=== PATIENT | female | born 1965 | race Caucasian/White ===

== ENCOUNTER → 2016-03-22 | Outpatient (CLI) | payer BC ==
--- NOTE | 2016-03-23 08:14 | MM ---
Reason for exam: screening (asymptomatic). Baseline mammogram. History: Patient is postmenopausal and is nulliparous. Family history of breast cancer in grandmother. Physical Findings: Nurse did not find any significant physical abnormalities on exam. MG Screening Mammo w CAD Bilateral CC and MLO view(s) were taken. The breast tissue is almost entirely fat. There is no discrete abnormality. Benign bilateral axillary lymph nodes. ASSESSMENT: Negative, BI-RAD 1 RECOMMENDATION: Routine screening mammogram of both breasts in 1 year.
== END | disposition home or self-care (01) ==
LOC: RADMAMWWP 08:09
PROVIDERS: ATTEND Family Medicine
DX: Z12.31 Encounter for screening mammogram for malignant neoplasm of breast (principal)

== ENCOUNTER → 2016-04-28 | Outpatient (CLI) | payer BC ==
[2016-04-28 11:49] LABS: Aty Lym Flag Slight; CH 30.3; CHCM 33.7; HGB 12.2 gm/dL (11.4-16.0); MCH 29.9 pg (25.0-35.0); MCV 90.6 fL (80.0-100.0); RBC 4.08 m/uL (3.80-5.40); RDW 13.6 % (11.5-15.5); WBC 4.9 k/uL (3.8-10.6); WBC (Perox) 5.12
[2016-04-28 13:12] LABS: Add Differential Manual Differential
[2016-04-28 13:14] LABS: Manual Review Performed; Nucleated Red Blood Cells 0 /100 WBC (0-0); Total Cells Counted 100
[2016-04-30 07:10] LABS: Mycoplasma IgG Antibody (EIA) 1.57 INDEX (<=0.90); Mycoplasma IgM Antibody 0.13 INDEX (<=0.90)
== END | disposition home or self-care (01) ==
LOC: LABWHC1 10:35
PROVIDERS: ATTEND Family Medicine
DX: R53.83 Other fatigue (principal); R05 Cough; R09.89 Other specified symptoms and signs involving the circulatory and respiratory systems
CPT/HCPCS: 36415; 85025; 86738

== ENCOUNTER → 2017-01-25 | Outpatient (CLI) | payer BC ==
[2017-01-25 16:07] LABS: ALT 35 U/L (9-52); AST 27 U/L (14-36); Alkaline Phosphatase 104 U/L (38-126); Anion Gap 13 mmol/L; Blood Urea Nitrogen 20 mg/dL (7-17); Calcium 9.8 mg/dL (8.4-10.2); Carbon Dioxide 31 mmol/L (22-30); Chloride 93 mmol/L (98-107); Cholesterol 217 mg/dL (<200); Glucose 107 mg/dL (74-99); HDL Cholesterol 39 mg/dL (40-60); Non-African American GFR(MDRD) 52 (>60 ml/min/1.73 sqM); Potassium 3.4 mmol/L (3.5-5.1); Sodium 137 mmol/L (137-145); Total Bilirubin 0.8 mg/dL (0.2-1.3); Total Protein 8.9 g/dL (6.3-8.2)
[2017-01-25 16:11] LABS: Basophils % (A) 1 %; CH 30.8; CHCM 34.8; Eosinophils # (A) 0.1 k/uL (0-0.7); Eosinophils % (A) 2 %; HCT 36.9 % (34.0-46.0); HGB 12.3 gm/dL (11.4-16.0); Luc % (Auto) 2; Lymphocytes # (A) 1.1 k/uL (1.0-4.8); Lymphocytes % (A) 21 %; MCH 29.7 pg (25.0-35.0); MCHC 33.3 g/dL (31.0-37.0); Mean Platelet Volume 7.4; Monocytes # (A) 0.3 k/uL (0-1.0); Monocytes % (A) 5 %; Neutrophils # (A) 3.6 k/uL (1.3-7.7); Neutrophils % (A) 69 %; RBC 4.15 m/uL (3.80-5.40); RDW 12.8 % (11.5-15.5); WBC 5.2 k/uL (3.8-10.6); WBC (Perox) 5.05
== END | disposition home or self-care (01) ==
LOC: LABWHC1 15:37
PROVIDERS: ATTEND Family Medicine
DX: E55.9 Vitamin D deficiency, unspecified (principal); E78.5 Hyperlipidemia, unspecified; E53.8 Deficiency of other specified B group vitamins; R53.81 Other malaise; Z13.220 Encounter for screening for lipoid disorders
CPT/HCPCS: 36415; 80053; 80061; 82306; 82607; 84439; 84443; 85025

== ENCOUNTER → 2017-04-25 | Outpatient (CLI) | payer BC ==
--- NOTE | 2017-04-26 14:02 | MM ---
Reason for exam: screening (asymptomatic). Last mammogram was performed 1 year and 1 month ago. History: Patient is postmenopausal and is nulliparous. Family history of breast cancer in grandmother. Physical Findings: A clinical breast exam by your physician is recommended on an annual basis and results should be correlated with mammographic findings. MG Screening Mammo w CAD Bilateral CC and MLO view(s) were taken. Prior study comparison: March 22, 2016, bilateral MG screening mammo w CAD. Focal asymmetry 6mm posterior outer aspect in the right breast. This finding is changed when compared with previous exams. ASSESSMENT: Incomplete: need additional imaging evaluation, BI-RAD 0 RECOMMENDATION: Special view mammogram of the right breast. If lesion persists on supplemental views, image directed ultrasound is recommended. [facility] will attempt to contact patient to return for supplemental views and ultrasound if indicated.
== END | disposition home or self-care (01) ==
LOC: RADMAMWWP 08:09
PROVIDERS: ATTEND Family Medicine
DX: Z12.31 Encounter for screening mammogram for malignant neoplasm of breast (principal)
CPT/HCPCS: 77067

== ENCOUNTER → 2017-05-02 | Outpatient (CLI) | payer BC ==
--- NOTE | 2017-05-02 10:55 | MM ---
Reason for exam: additional evaluation requested from abnormal screening. Last mammogram was performed less than 1 month ago. History: Patient is postmenopausal, has history of other cancer at age 49, and is nulliparous. Family history of breast cancer in paternal grandmother. Physical Findings: Nurse did not find any significant physical abnormalities on exam. MG Work Up Mamm w CAD RT Spot compression CC and ML view(s) were taken of the right breast. Prior study comparison: April 25, 2017, bilateral MG screening mammo w CAD. March 22, 2016, bilateral MG screening mammo w CAD. Finding: There is a 6 mm oval mass in the posterior position of the right breast. Does not completely go away. These results were verbally communicated with the patient and result sheet given to the patient on 05/02/17. ASSESSMENT: Incomplete: need additional imaging evaluation, BI-RAD 0 RECOMMENDATION: Ultrasound of the right breast. (8-11 o'clock posterior depth)
--- NOTE | 2017-05-02 10:58 | USB ---
Reason for exam: additional evaluation requested from abnormal screening. History: Patient is postmenopausal, has history of other cancer at age 49, and is nulliparous. Family history of breast cancer in paternal grandmother. US Breast Limited RT Right breast ultrasound demonstrates benign lymph nodes identified correlate with mammogram. These results were verbally communicated with the patient and result sheet given to the patient on 05/02/17. ASSESSMENT: Benign, BI-RAD 2 RECOMMENDATION: Return to routine screening mammogram schedule for both breasts.
== END | disposition home or self-care (01) ==
LOC: RADMAMWWP 08:19
PROVIDERS: ATTEND Family Medicine
DX: R92.8 Other abnormal and inconclusive findings on diagnostic imaging of breast (principal)
CPT/HCPCS: 77065

== ENCOUNTER → 2018-02-02 | Outpatient (CLI) | payer BC ==
[2018-02-02 11:28] LABS: Basophils % (A) 1 %; Eosinophils # (A) 0.2 k/uL (0-0.7); Eosinophils % (A) 4 %; HCT 37.6 % (34.0-46.0); HGB 12.1 gm/dL (11.4-16.0); Lymphocytes # (A) 0.8 k/uL (1.0-4.8); Lymphocytes % (A) 16 %; MCH 28.7 pg (25.0-35.0); MCHC 32.2 g/dL (31.0-37.0); MCV 89.3 fL (80.0-100.0); Mean Platelet Volume 6.8; Monocytes # (A) 0.3 k/uL (0-1.0); Monocytes % (A) 5 %; Neutrophils # (A) 3.6 k/uL (1.3-7.7); Neutrophils % (A) 71 %; Platelet Count 297 k/uL (150-450); RBC 4.22 m/uL (3.80-5.40); RDW 13.9 % (11.5-15.5); WBC 5.1 k/uL (3.8-10.6)
[2018-02-02 15:51] LABS: Albumin 4.5 g/dL (3.80-4.90); Albumin/Globulin Ratio 1.29 (1.20-2.10); Anion Gap 11.4 mmol/L (4.00-12.00); Calcium 9.4 mg/dL (8.7-10.3); Carbon Dioxide 27.6 mmol/L (21.6-31.8); Globulin 3.5 g/dL (1.6-3.3); LDL Cholesterol,Calculated 134.4 mg/dL (0.0-131.0); Potassium 3.8 mmol/L (3.5-5.5); Total Bilirubin 0.6 mg/dL (0.2-1.2); VLDL Calculation 19.6 mg/dL (5.00-40.00)
[2018-02-02 15:59] LABS: T4, Free (Free Thyroxine) 1.3 ng/dL (0.80-1.80)
== END | disposition home or self-care (01) ==
LOC: LABWHC1 10:27
PROVIDERS: ATTEND Family Medicine
DX: E55.9 Vitamin D deficiency, unspecified (principal); E78.5 Hyperlipidemia, unspecified; R53.83 Other fatigue; Z13.220 Encounter for screening for lipoid disorders
CPT/HCPCS: 36415; 80053; 80061; 82306; 84439; 84443; 85025

== ENCOUNTER → 2018-07-06 | Outpatient (CLI) | payer BC ==
[2018-07-06 23:19] LABS: Rheumatoid Factor 18 IU/mL (0-15)
[2018-07-06 23:39] LABS: Protein, Total 8.2 g/dL (6.2-8.2)
[2018-07-07 11:17] LABS: ANA Pattern Speckled
[2018-07-08 14:42] LABS: Albumin 4.12 g/dL (3.80-4.90); Gamma Globulin 1.91 g/dL (0.70-1.50)
== END | disposition home or self-care (01) ==
LOC: LABWHC1 15:00
PROVIDERS: ATTEND Internal Medicine Hematology & Oncology
DX: R59.1 Generalized enlarged lymph nodes (principal)
CPT/HCPCS: 36415; 82164; 83615; 83883; 84165; 85652; 86038; 86039; 86334; 86431

== ENCOUNTER → 2018-07-20 | Outpatient (CLI) | payer BC ==
[2018-07-20 11:38] LABS: Basophils % (A) 1 %; Eosinophils # (A) 0.2 k/uL (0-0.7); Eosinophils % (A) 2 %; HCT 37.5 % (34.0-46.0); HGB 12.3 gm/dL (11.4-16.0); Lymphocytes % (A) 16 %; MCH 28.6 pg (25.0-35.0); MCHC 32.8 g/dL (31.0-37.0); MCV 87.2 fL (80.0-100.0); Mean Platelet Volume 7.1; Monocytes # (A) 0.3 k/uL (0-1.0); Monocytes % (A) 5 %; Neutrophils # (A) 4.8 k/uL (1.3-7.7); Neutrophils % (A) 74 %; Platelet Count 318 k/uL (150-450); RDW 14.6 % (11.5-15.5); WBC 6.5 k/uL (3.8-10.6)
[2018-07-20 12:50] LABS: Appearance,Urine Clear (Clear); Bilirubin,Urine Negative (Negative); Blood,Urine Negative (Negative); Color,Urine Light Yellow; Glucose,Urine (UA) Negative (Negative); Ketones,Urine Negative (Negative); Leukocyte Esterase,Urine Negative (Negative); Nitrite,Urine Negative (Negative); Protein,Urine Negative (Negative); Urobilinogen,Urine <2.0 mg/dL (<2.0)
[2018-07-20 13:16] LABS: Erythrocyte Sedimentation Rate 90 mm/hr (0-20)
[2018-07-20 16:45] LABS: Cyclic Citrull Pep IgG Unit 0.8 U/mL; Cyclic Citrullinated Pep IgG NEGATIVE (NEGATIVE); DNA Double-Stranded NEGATIVE (NEGATIVE); Scleroderma SC-70 Ab 3.9 AI
[2018-07-20 16:46] LABS: Cardiolipin Ab IgA Interp NEGATIVE (NEGATIVE); Cardiolipin Ab IgG Interp NEGATIVE (NEGATIVE); Cardiolipin Ab IgM Interp NEGATIVE (NEGATIVE); Cardiolipin IgA Antibody 0.5 U/mL; Cardiolipin IgM Antibody 0.6 U/mL
[2018-07-20 16:53] LABS: Rheumatoid Factor 18 IU/mL (0-15)
[2018-07-20 17:02] LABS: Vitamin D 25 Hydroxy 21.6 ng/mL (30.0-100.0)
[2018-07-20 18:22] LABS: Hepatitis C IgG Antibody Non-Reactive (Non-Reactive)
[2018-07-21 00:20] LABS: T4, Free (Free Thyroxine) 1.1 ng/dL (0.80-1.80)
[2018-07-21 00:22] LABS: African American GFR (CKD) 60.2 (60.0-200.0); Albumin 4.6 g/dL (3.80-4.90); Albumin/Globulin Ratio 1.12 (1.60-3.17); Anion Gap 10.7 mmol/L (4.00-12.00); BUN/Creat Ratio 19.17 Ratio (12.00-20.00); C Reactive Protein 0.4 mg/dL (0.0-0.8); Carbon Dioxide 28.3 mmol/L (21.6-31.8); Globulin 4.1 g/dL (1.6-3.3); Potassium 3.3 mmol/L (3.5-5.5); Total Bilirubin 0.4 mg/dL (0.3-1.2); Total Protein 8.7 g/dL (6.2-8.2); Uric Acid 7.4 mg/dL (2.9-7.7)
[2018-07-21 09:22] LABS: HLA B27 NEGATIVE
[2018-07-21 11:06] LABS: ANA Pattern Speckled; ANA Pattern 2 Nucleolar
[2018-07-21 12:27] LABS: Angiotensin-1 Converting Enz. 64 U/L (8-52)
[2018-07-21 13:33] LABS: Histone Antibody 0.5 UNITS (<1.0)
[2018-07-21 14:19] LABS: APTT 29 Sec(s) (<43); DRVVT 1:1 Mix 40 Sec(s) (<44); Dilute Russell Viper Venom 46 Sec(s) (<44)
[2018-07-21 14:54] LABS: C-ANCA <1:20 Titer (<1:20); P-ANCA <1:20 Titer (<1:20)
[2018-07-22 08:19] LABS: Aldolase 4.1 U/L (1.2-7.6)
== END ==
LOC: LABWHC1 10:38
PROVIDERS: ATTEND Internal Medicine Rheumatology
DX: R76.8 Other specified abnormal immunological findings in serum (principal)
CPT/HCPCS: 36415; 80053; 81003; 82085; 82164; 82306; 82550; 83516; 84439; 84443; 84550; 85025; 85613; 85652; 85730; 86038; 86039; 86140; 86147; 86160; 86200; 86225; 86235; 86255; 86334; 86431; 86803; 86812; 87340

== ENCOUNTER → 2018-08-28 | Outpatient (CLI) | payer BC ==
--- NOTE | 2018-08-29 13:38 | MM ---
Reason for exam: screening (asymptomatic). Last mammogram was performed 1 year and 4 months ago. History: Patient is postmenopausal, has history of endometrial cancer at age 49, and is nulliparous. Family history of breast cancer in paternal grandmother at age 72. Physical Findings: A clinical breast exam by your physician is recommended on an annual basis and results should be correlated with mammographic findings. MG Screening Mammo w CAD Bilateral CC and MLO view(s) were taken. Prior study comparison: May 02, 2017, right breast MG work up mamm w CAD RT. April 25, 2017, bilateral MG screening mammo w CAD. There are scattered fibroglandular densities. No suspicious abnormality. No significant changes when compared with prior studies. ASSESSMENT: Negative, BI-RAD 1 RECOMMENDATION: Routine screening mammogram of both breasts in 1 year.
== END | disposition home or self-care (01) ==
LOC: RADMAMWWP 07:49
PROVIDERS: ATTEND Obstetrics & Gynecology
DX: Z12.31 Encounter for screening mammogram for malignant neoplasm of breast (principal)
CPT/HCPCS: 77067

== ENCOUNTER → 2018-12-15 | Outpatient (CLI) | payer BC ==
--- NOTE | 2018-12-15 10:27 | MR ---
EXAMINATION TYPE: MR brain wo/w con DATE OF EXAM: 12/15/2018 COMPARISON: None HISTORY: Balance disorder TECHNIQUE: Multiplanar, multisequence images of the brain and brainstem is performed without and with IV contras t, utilizing 11.5 mL intravenous Gadavist . FINDINGS: Diffusion weighted images demonstrate no evidence of a recent infarct or other diffusion ab normality. The ventricular system and cisternal spaces are normal in size and appearance. The brain volume is age appropriate. Midline structures demonstrate normal morphology. Cerebellar tonsils are low-lying in position measur ing 2 mm below the level of foramen magnum. No tonsillar beaking. Post contrast images demonstrate n o abnormal enhancement. The dural venous sinuses appear patent. Changes of chronic sinusitis and righ t-sided mastoiditis. There are approximately 5 focal areas of abnormal signal the white matter all measuring less than 5 m m. IMPRESSION: 1. Low-lying cerebellar tonsils measuring approximately 2 mm below the foramen magnum. No tonsillar b eaking. 2. Changes of chronic sinusitis and right mastoiditis. 3. There are a few scattered less than 5 mm focal areas of abnormal signal the white matter which are nonspecific could be related to hypertension, migraine headaches. Remote microvascular ischemia or d emyelinating process not entirely excluded.
== END | disposition home or self-care (01) ==
LOC: RADMRIMAIN 09:05
PROVIDERS: ATTEND Psychiatry & Neurology Neurology
DX: J32.9 Chronic sinusitis, unspecified (principal); R26.89 Other abnormalities of gait and mobility; R90.82 White matter disease, unspecified
CPT/HCPCS: 70553; A9585

== ENCOUNTER → 2018-12-28 | Outpatient (CLI) | payer BC ==
--- NOTE | 2018-12-28 11:47 | ECHOF ---
Referral Reason:R05 cough MEASUREMENTS -------- HEIGHT: 165.1 cm WEIGHT: 113.4 kg BP: RVIDd: 3.1 cm (< 3.3) IVSd: 1.0 cm (0.6 - 1.1) LVIDd: 4.9 cm (3.9 - 5.3) LVPWd: 1.1 cm (0.6 - 1.1) IVSs: 1.2 cm LVIDs: 3.9 cm LVPWs: 1.4 cm LA Diam: 3.1 cm (2.7 - 3.8) LAESV Index (A-L): 18.05 ml/m Ao Diam: 2.7 cm (2.0 - 3.7) AV Cusp: 1.7 cm (1.5 - 2.6) LA Diam: 3.9 cm (2.7 - 3.8) MV EXCURSION: 19.783 mm (> 18.000) MV EF SLOPE: 102 mm/s (70 - 150) EPSS: 0.4 cm MV E Juan Jose: 0.73 m/s MV DecT: 193 ms MV A Juan Jose: 1.12 m/s MV E/A Ratio: 0.65 RAP: 5.00 mmHg RVSP: 15.61 mmHg FINDINGS -------- Sinus rhythm. This was a technically good study. LV size, wall thickness and systolic function are normal, with an EF greater than 55%. The left christine tricular size is normal. The diastolic filling pattern is normal for the age of the patient 6.25. The right ventricle is normal in size. The left atrial size is normal. Normal LA size by volume 22+/-6 ml/m2. The right atrial size is normal. There is mild aortic valve sclerosis. There is no evidence of aortic regurgitation. Mild mitral regurgitation is present. Mild tricuspid regurgitation present. Right ventricular systolic pressure is normal at < 35 mmHg. There is no evidence of pulmonary hypertension. There is no pulmonic regurgitation present. The aortic root size is normal. There is no pericardial effusion. CONCLUSIONS -------- 1. Sinus rhythm. 2. This was a technically good study. 3. LV size, wall thickness and systolic function are normal, with an EF greater than 55%. 4. The left ventricular size is normal. 5. The diastolic filling pattern is normal for the age of the patient 6.25 6. The right ventricle is normal in size. 7. The left atrial size is normal. 8. Normal LA size by volume 22+/-6 ml/m2. 9. The right atrial size is normal. 10. There is mild aortic valve sclerosis. 11. Mild mitral regurgitation is present. 12. Mild tricuspid regurgitation present. 13. Right ventricular systolic pressure is normal at < 35 mmHg. 14. There is no evidence of pulmonary hypertension. 15. There is no pulmonic regurgitation present. 16. The aortic root size is normal. 17. There is no pericardial effusion. DOCK [employer]PERATIONS SUPERVISOR: Sandy Olivo RDCS
== END | disposition home or self-care (01) ==
LOC: CPPFTMAIN 09:30
PROVIDERS: ATTEND Internal Medicine Critical Care Medicine
DX: I08.1 Rheumatic disorders of both mitral and tricuspid valves (principal); J44.9 Chronic obstructive pulmonary disease, unspecified
CPT/HCPCS: 93306; 94060; 94726; 94729

== ENCOUNTER → 2019-01-11 | Outpatient (CLI) | payer BC ==
--- NOTE | 2019-01-11 14:55 | US ---
EXAMINATION TYPE: US carotid duplex BILAT DATE OF EXAM: 01/11/2019 COMPARISON: NONE CLINICAL HISTORY: R26.89 BALANCE DISORDER. Patient states having brain lesions. HTN- controlled with meds. EXAM MEASUREMENTS: RIGHT: Peak Systolic Velocity (PSV) cm/sec ----- Right CCA: 90.8 ----- Right ICA: 76.5 ----- Right ECA: 143.1 ICA/CCA ratio: 0.8 RIGHT: End Diastole cm/sec ----- Right CCA: 29.2 ----- Right ICA: 23.7 ----- Right ECA: 23.6 LEFT: Peak Systolic Velocity (PSV) cm/sec ----- Left CCA: 90.1 ----- Left ICA: 78.8 ----- Left ECA: 67.1 ICA/CCA ratio: 0.9 LEFT: End Diastole cm/sec ----- Left CCA: 24.1 ----- Left ICA: 16.7 ----- Left ECA: 15.6 VERTEBRALS (direction of flow): Right Vertebral: Antegrade Left Vertebral: Antegrade Rhythm: Normal Elevated right ECA velocity right common carotid artery to internal carotid artery ratio is within no rmal limits. No significant stenosis. IMPRESSION: Mild degree of grayscale atheromatous plaquing with no sonographically evident hemodynam ically significant stenosis within either visualized carotid arterial system. Criteria for Assigning % of Stenosis / Diameter reduction (Estimation based on the indirect measurements of the internal carotid artery velocities (ICA PSV). 1. Normal (no stenosis)=ICA PSV < 125 cm/s: ratio < 2.0: ICA EDV<40 cm/s. 2. Less than 50% stenosis=ICA PSV < 125 cm/s: ratio < 2.0: ICA EDV<40 cm/s. 3. 50 to 69% stenosis=ICA PSV of 125 to 230 cm/s: ration 2.0 ? 4.0: ICA EDV 40-100 cm/s. 4. Greater than 70% stenosis to near occlusion= ICA PSV > 230 cm/s: ratio > 4.0: ICA EDV > 100 cm/s. 5. Near occlusion= ICA PSV velocities may be low or undetectable: variable ratio and ICA EDV. 6. Total occlusion=unable to detect flow.
== END | disposition home or self-care (01) ==
LOC: RADUSWWP 14:25
PROVIDERS: ATTEND Psychiatry & Neurology Neurology
DX: I65.23 Occlusion and stenosis of bilateral carotid arteries (principal); R26.89 Other abnormalities of gait and mobility
CPT/HCPCS: 93880

== ENCOUNTER → 2019-09-18 | Outpatient (CLI) | payer BC ==
--- NOTE | 2019-09-19 08:19 | CT ---
EXAMINATION TYPE: CT chest wo con DATE OF EXAM: 09/18/2019 COMPARISON: NONE at this institution. HISTORY: Chronic cough, newly diagnosed Sjogren's syndrome or disease per patient. CT DLP: 443.1 mGycm. Automated Exposure Control for Dose Reduction was Utilized. TECHNIQUE: CT scan of the thorax is performed without IV contrast. FINDINGS: LUNGS: There is 4 mm groundglass nodule right midlung anteriorly axial image 31. Mild linear scarring in both bases. No suspicious focal consolidation. No pleural effusion or pneumothorax seen bilateral ly. MEDIASTINUM: Lack of IV contrast is noted to limit evaluation for mediastinal and especially hilar ad enopathy. There are no definitive greater than 1 cm hilar or mediastinal lymph nodes. No cardiomega ly or pericardial effusion is seen. OTHER: Low dense 1.5 x 1.1 cm right adrenal nodule with Hounsfield units averaging -14 consistent wit h benign lipid rich adenoma. Moderate multilevel anterior and lateral spurring in the thoracic spine. IMPRESSION: No concerning greater than 4 mm pulmonary nodules or masses. No suspicious thoracic adeno kenney. No acute pulmonary process.
== END | disposition home or self-care (01) ==
LOC: RADCTMAIN 09:19
PROVIDERS: ATTEND Internal Medicine Critical Care Medicine
DX: R05 Cough (principal)
CPT/HCPCS: 71250

== ENCOUNTER 2020-05-17 10:46 | Emergency (ER) | payer BC ==
--- NOTE | 2020-05-17 11:23 | ED ---
General Adult HPI - General Chief complaint: Recheck/Abnormal Lab/Rx Stated complaint: BAM Time Seen by Provider: 05/17/20 11:00 Source: patient, RN notes reviewed, old records reviewed Mode of arrival: ambulatory Limitations: no limitations - History of Present Illness Initial comments: This is a 54-year-old female presents emergency department stating that at another facility she was tested positive for COVID yesterday. Patient states she continues to have diarrhea and nausea and a fever. Patient states she has a cough but she's not short of breath patient denies any difficulty breathing. Patient denies any chest pain or palpitations. Patient states she has lost her taste and smell per patient denies headache patient denies numbness weakness. Patient denies any back pain. Patient states she was sent in by primary medical care doctor to get monoclonal antibodies. - Related Data Allergies Allergy/AdvReac Type Severity Reaction Status Date / Time latex Allergy Rash/Hives Verified 05/17/20 10:54 Penicillins Allergy Rash/Hives Verified 05/17/20 10:54 Review of Systems ROS Statement: Those systems with pertinent positive or pertinent negative responses have been documented in the HPI. ROS Other: All systems not noted in ROS Statement are negative. Past Medical History Past Medical History: Cancer, Renal Disease Additional Past Medical History / Comment(s): sjorgens, susy malformation, endometrial cancer Past Surgical History: Adenoidectomy, Hysterectomy, Tonsillectomy Additional Past Surgical History / Comment(s): bladder surgery, sinus surgery Past Psychological History: No Psychological Hx Reported Smoking Status: Never smoker Past Alcohol Use History: None Reported Past Drug Use History: None Reported General Exam - General Exam Comments Initial Comments: GENERAL: Patient is well-developed and well-nourished. Patient is nontoxic and well- hydrated and is in mild distress. ENT: Neck is soft and supple. No significant lymphadenopathy is noted. Oropharynx is clear. Moist mucous membranes. Neck has full range of motion without eliciting any pain. EYES: The sclera were anicteric and conjunctiva were pink and moist. Extraocular movements were intact and pupils were equal round and reactive to light. Eyelids were unremarkable. PULMONARY: Unlabored respirations. Good breath sounds bilaterally. No audible rales rhonchi or wheezing was noted. CARDIOVASCULAR: There is a regular rate and rhythm without any murmurs gallops or rubs. l pulses are equal bilaterally ABDOMEN: Soft and nontender with normal bowel sounds. SKIN: Skin is clear with no lesions or rashes and otherwise unremarkable. NEUROLOGIC: Patient is alert and oriented x3. Cranial nerves II through XII are grossly intact. Motor and sensory are also intact. Normal speech, volume and content. Symmetrical smile. MUSCULOSKELETAL: Normal extremities with adequate strength and full range of motion. LYMPHATICS: No significant lymphadenopathy is noted PSYCHIATRIC: Normal psychiatric evaluation. Limitations: no limitations Course Vital Signs 05/17/20 10:50 Temperature 98.8 F Pulse Rate 81 Respiratory 18 Rate Blood Pressure 130/84 O2 Sat by Pulse 97 Oximetry Medical Decision Making - Medical Decision Making Patient has positive so patient will be getting monoclonal antibodies. - Lab Data Lab Results 05/17/20 Range/Units 11:09 Coronavirus (PCR) Detected A (Not Detectd) Disposition Clinical Impression: COVID-19 Disposition: HOME SELF-CARE Instructions (If sedation given, give patient instructions): Coronavirus Disease 2019 (COVID-19) Additional Instructions: Patient should return if there are any worsening or new symptoms and particularly if there is any shortness of breath. Is patient prescribed a controlled substance at d/c from ED?: No Referrals: Brice Regan MD [Primary Care Provider] - 1-2 days Time of Disposition: 12:10
[2020-05-17] MEDS: ONDANSETRON ODT 4 MG TAB PO STA (11:41)
[2020-05-17] MEDS: BAMLANIVIMAB (EUA) 700 MG, ETESEVIMAB (EUA) 1,400 MG in SODIUM CHLORIDE 0.9% 50 ML IVPB ONE (12:50)
[2020-05-17 14:39] VITALS: BP 134/86; PULSE 82; RESP 18; TEMP 99
== END 2020-05-17 14:39 | disposition home or self-care (01) ==
LOC: EC 10:46
DX: U07.1 COVID-19 (principal); Z88.0 Allergy status to penicillin
CPT/HCPCS: 87635; 96365; 99284

== ENCOUNTER → 2021-10-19 | Outpatient (CLI) | payer BC ==
--- NOTE | 2021-10-21 16:00 | MM ---
Reason for Exam: Screening (asymptomatic). Last mammogram was performed 3 year(s) and 2 month(s) ago. Patient History: Menarche at age 8. Patient has no children. Left ovary removed at age 49. Right ovary removed at age 49. Hysterectomy at age 49. Postmenopausal. Endometrial cancer, age 49. Paternal grandmother had breast cancer, age 72. Risk Values: Heidi 5 year model risk: 1.4%. NCI Lifetime model risk: 9.9%. Prior Study Comparison: 04/25/2017 Bilateral Screening Mammogram, [facility]. 05/02/2017 Right Diagnostic Mammogram, [facility]. 08/28/2018 Bilateral Screening Mammogram, [facility]. Tissue Density: The breast tissue is almost entirely fat. Findings: Analyzed By CAD. There is no suspicious group of microcalcifications or new suspicious mass in either breast. Overall Assessment: Negative, BI-RAD 1 Management: Screening Mammogram of both breasts in 1 year. A clinical breast exam by your physician is recommended on an annual basis and results should be correlated with mammographic findings. Electronically signed and approved by: Dayron Marroquin DO
== END | disposition home or self-care (01) ==
LOC: RADMAMWWP 07:34
PROVIDERS: ATTEND Family Medicine
DX: Z12.31 Encounter for screening mammogram for malignant neoplasm of breast (principal); Z78.0 Asymptomatic menopausal state; Z80.3 Family history of malignant neoplasm of breast
CPT/HCPCS: 77067

== ENCOUNTER → 2022-03-09 | Outpatient (CLI) | payer BC ==
--- NOTE | 2022-03-09 15:46 | P.SLEEP ---
History of Present Illness H&P Date: 03/09/22 This is a 56-year-old female patient was referred to me for a poor sleep quality, chronic fatigue and daytime tiredness and sleepiness. The patient feels that she has a sleeping disorder. 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 She works in the afternoon and she arrives home at around 2 AM. She is unable to fall asleep even if she is in bed and sometimes takes it up to 45 minutes to an hour to fall asleep. Currently, the patient is sleeping between 3 AM and 10 AM in the morning. She thinks that she is averaging around 6-7 hours of sleep. I was able to check her 50 bid which has recorded her number of hours of sleep and this ranges between 5-1/2 hours and 7 hours. Sometimes, she sees as little as 3 hours. The patient thinks that there is a problem with her sleep quality as the patient is waking up tired and fatigued and sleepy. Her sleep is very much fragmented and she has frequent nighttime urination and sometimes she is unable to generate and go back to sleep after waking up. She has a previous history of uterine cancer that was treated with radiation therapy and since then, she has had issues with her bladder, probably irritable bladder and the patient has constant urge to urinate. She gets up at least 6 times in the middle of the night. She has been also diagnosed having chronic stage III a kidney disease. Other comorbidities include chronic body aches and pains, Sjogren's disease and the patient is currently on Plaquenil and she has a typical sicca syndrome. She also has other comorbidities including hypertension, previous history of Park's palsy and Arnold-Chiari malformation. No history of any headaches. No 70 seizure activity. No substance abuse. No alcoholism. No nocturnal seizures. She has history of snoring. She has also been told by her to quit breathing in the middle of the night and wake up gasping for air. Occasionally she does some sleep talking. She also has occasional nighttime heartburn. There is history of increased anxiety. No history of depression. Her weight is up by around 70 pounds over the past 5 years. She doesn't take any naps during the day. At times, she goes off. She is able to function adequately at work. Her functioning autism preserved despite her ongoing sleep issues. No sleep paralysis. No hallucinations. No cataplexy. Her current [place] score is at 11. Review of Systems Constitutional: Reports daytime sleepiness, Reports fatigue, Reports weight gain Eyes: denies as per HPI, denies blurred vision, denies bulging eye, denies decreased vision, denies diplopia, denies discharge, denies dry eye, denies irritation, denies itching, denies pain, denies photophobia, denies loss of peripheral vision, denies loss of vision, denies tunnel vision/blind spots Ears: deny: decreased hearing, ear discharge, earache, tinnitus Ears, nose, mouth and throat: Reports as per HPI Breasts: absent: as per HPI, change in shape, gynecomastia, masses, nipple discharge, pain, skin changes, swelling Cardiovascular: Reports as per HPI Respiratory: Reports snoring Gastrointestinal: Reports as per HPI Genitourinary: Reports nocturia, Reports pelvic pain, Reports urgency, Reports urinary frequency Menstruation: Reports as per HPI Musculoskeletal: Reports as per HPI Musculoskeletal: absent: ankle pain, ankle stiffness, ankle swelling, as per HPI, elbow pain, elbow stiffness, elbow swelling, foot pain, foot stiffness, foot swelling, hand pain, hand stiffness, hand swelling, hip pain, hip stiffness, hip swelling, knee pain, knee stiffness, knee swelling, shoulder pain, shoulder stiffness, shoulder swelling, wrist pain, wrist stiffness, wrist swelling Integumentary: Reports as per HPI Neurological: Reports as per HPI Psychiatric: Reports insomnia, Reports sleep disturbances Endocrine: Reports as per HPI, Reports fatigue Hematologic/Lymphatic: Reports as per HPI Allergic/Immunologic: Reports as per HPI Past Medical History Past Medical History: Cancer (Uterine cancer), Renal Disease (Chronic stage III a kidney disease) Additional Past Medical History / Comment(s): endometrial cancer, irritable bladder, hypertension, rheumatoid arthritis, Arnold-Chiari malformation, previous history of Park's palsy, Sjogren's disease Past Surgical History: Adenoidectomy, Hysterectomy, Tonsillectomy Additional Past Surgical History / Comment(s): bladder surgery, sinus surgery Past Psychological History: No Psychological Hx Reported Smoking Status: Never smoker Past Alcohol Use History: None Reported Past Drug Use History: None Reported Medications and Allergies Home Medications and Allergies Comment(s): Potassium chloride 20 mEq 1 tablet a day, hydrochlorothiazide 20 mg A day, chlorthalidone 25 mg by mouth daily, Norvasc 10 mg by mouth daily, Ventolin HFA on an as-needed basis, nzsm-isl-yroznle fish oil and iron tablets. Allergies Allergy/AdvReac Type Severity Reaction Status Date / Time latex Allergy Rash/Hives Verified 05/17/20 10:54 Penicillins Allergy Rash/Hives Verified 05/17/20 10:54 Physical Exam BP is 110/76 with a pulse of 71 and the respiration of 18 and the temperature is 97.2. Neck is 17 inches. Her weight is 244 pounds in a body mass index is 39.3. Her current pulse ox is 98%. Weight is 244 pounds Gen. appearance she is calm and comfortable, limited respiratory distress, looks obese with a body mass index of 39 The patient appeared well nourished and normally developed. Vital signs as documented. Head exam is unremarkable. No scleral icterus or corneal arcus noted. Neck is without jugular venous distension, thyromegaly, or carotid bruits. The patient has significant crowding of posterior pharynx with a Mallampati class IV and a significant overbite. Carotid upstrokes are brisk bilaterally. Lungs are clear to auscultation and percussion. Cardiac exam reveals the PMI to be normally sized and situated. Rhythm is regular. First and second heart sounds normal. No murmurs, rubs or gallops. Abdominal exam reveals normal bowel sounds, no masses, no organomegaly and no aortic enlargement. Extremities are nonedematous and both femoral and pedal pulses are normal.Examination of the skin revealed no evidence of significant rashes, suspicious appearing nevi or other concerning lesions.Neurologically, the patient is awake and alert and the patient does not have any focal neurological deficit. Cranial nerves are essentially intact. Assessment and Plan Plan: Assessment Daytime fatigue and chronic hypersomnia with an [place] score of 11. 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 Other possibilities include obstructive sleep apnea. Endometrial cancer with previous radiation therapy Hypertension Sjogren's disease Rheumatoid arthritis Arnold-Chiari malformation Previous history of Park's palsy Plan Unable to come to the sleep center to undergo a full polysomnogram as the patient would not be able to generate and maintain sleep in the sleep Center. We'll offer the patient home sleep study to investigate for sleep apnea Give the patient some guidance regarding her ongoing nocturia. She needs to avoid taking diuretics in the afternoon or evening and take it in the morning and in same time she is to Fluid Intake Late in the Evening and Early Midnight Hours May need a follow-up urology evaluation regarding her nocturia Rest of the comorbidities of being treated for now We'll check this patient for sleep apnea in the setting of ongoing treatment is needed with CPAP therapy and this will largely depend on the presence and severity of sleep apnea. Sleep Note - Sleep Note Sleep Note: Temperature: Pulse Rate: Respiratory Rate: Blood Pressure: SpO2: Height: Weight: BMI: Neck Circumference:
== END ==
LOC: SLEEP 14:00
PROVIDERS: ATTEND Internal Medicine Critical Care Medicine
DX: C54.1 Malignant neoplasm of endometrium (principal); I10 Essential (primary) hypertension; G47.10 Hypersomnia, unspecified; M06.9 Rheumatoid arthritis, unspecified; M35.00 Sjogren syndrome, unspecified; Q07.00 Arnold-Chiari syndrome without spina bifida or hydrocephalus; G51.0 Bell's palsy; Z91.040 Latex allergy status; Z88.0 Allergy status to penicillin
CPT/HCPCS: 99211

== ENCOUNTER → 2022-07-29 | Outpatient (CLI) | payer BC ==
--- NOTE | 2022-07-29 12:27 | P.PN ---
Subjective DATE: 07/29/2022 FOLLOW UP VISIT. Patient with obstructive sleep apnea hypopnea syndrome return to sleep center for follow-up visit. Recently patient had sleep study which documented obstructive sleep apnea hypopnea syndrome. Patient was initiated on PAP therapy and today is first visit after treatment was started. I explained results of sleep study to the patient and family in details Patient was able to use PAP equipment every night for the whole night. The patient does not have significant problems with the mask, PAP pressure and humidification. Jerome sleepiness scale is 7, which is normal. I checked information from PAP unit. PAP unit pressure 5-15, average 8.9 cm H2O. Usage is 100 % for more then 4 hours, average 6.25 hours per night. Leak is increased to 35.7 l/m. Apnea Hypopnea Index is 1.4, which is normal. MEDICATIONS:1. Norvasc 10 mg once a day 2. Ventolin as needed 3. Chlorthalidone 25 mg once a day During physical exam: GENERAL: A pleasant patient without any distress. VITAL SIGNS: BP 112/78, HR 77, RR 16, weight 241.2, temperature 97.8, oxygen saturation at room air 99%. HEENT: PERRLA, EOMI.low position of soft palate, Mallapati 4, retrognathia . NECK: Supple. No JVD. LUNGS: Clear to percussion and to auscultation. Good air exchange. No wheezing or rhonchi. HEART: S1, S2 regular. ABDOMEN: Soft and nontender.[] EXTREMITIES: No clubbing or cyanosis. 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 No focal deficit. Impressions: 1. Obstructive sleep apnea-hypopnea syndrome. Patient demonstrated great compliance with treatment, benefiting from treatment. 2. Hypertension. 3. Sjogren's syndrome. 4. History of rheumatoid arthritis. 5. History of Arnold-Chiary malformation. 6. History of Park's palsy. Plan: 1. Continue using PAP equipment every night for the whole night. 2. To change air filter at least 1-2 times per month. 3. PAP unit should stay lower then position of the head. 4. Advised patient to remove all remaining water from humidifier canister daily and make it dry after each usage. Refill canister with fresh distilled water before each usage. 5. Sleep hygiene with regular time in bed for at least 8 hours. 6. Precautions related to driving. No driving if feel any sleepiness. 7. I will maintain prescription for PAP supplies including mask, tube, filters. 8. Follow up visit in 6 months or earlier if patient has any problems. 9. Watching weight. Thank you very much for allowing me to participate in the management of your patient. Carmelo Lomas MD, PhD, FAASM. Diplomat of [employer], Sleep Medicine Board by [employer] [facility]
== END ==
LOC: 3 N SLEEP 11:02
PROVIDERS: ATTEND Internal Medicine
DX: G47.33 Obstructive sleep apnea (adult) (pediatric) (principal); I10 Essential (primary) hypertension; M35.00 Sjogren syndrome, unspecified; M06.9 Rheumatoid arthritis, unspecified; Q07.00 Arnold-Chiari syndrome without spina bifida or hydrocephalus; G51.0 Bell's palsy; Z99.89 Dependence on other enabling machines and devices; Z88.0 Allergy status to penicillin; Z91.040 Latex allergy status; Z79.899 Other long term (current) drug therapy
CPT/HCPCS: 99212

== ENCOUNTER → 2022-08-23 | Outpatient (CLI) | payer BC ==
[2022-08-23 16:26] LABS: ALT 28 U/L (8-44); AST 24 U/L (13-35); Albumin/Globulin Ratio 1.28 Ratio (1.60-3.17); Alkaline Phosphatase 103 U/L (41-126); BUN/Creat Ratio 13.25 Ratio (12.00-20.00); Blood Urea Nitrogen 15.9 mg/dL (9.0-27.0); Calcium 10.1 mg/dL (8.7-10.3); Carbon Dioxide 29.7 mmol/L (21.6-31.8); Chloride 100 mmol/L (96-109); Globulin 3.9 d/dL (1.6-3.3); Glucose 93 mg/dL (70-110); Potassium 3.7 mmol/L (3.5-5.5); Rheumatoid Factor, Qnt <15 IU/mL (0-15); Sodium 143 mmol/L (135-145); T4, Free (Free Thyroxine) 1.38 ng/dL (0.80-1.80); Total Bilirubin 0.6 mg/dL (0.3-1.2); Total Protein 8.9 d/dL (6.2-8.2)
[2022-08-23 16:47] LABS: Basophils # (A) 0.05 X 10*3/uL (0.00-0.10); Basophils % (A) 0.9 %; Eosinophils # (A) 0.15 X 10*3/uL (0.04-0.35); Eosinophils % (A) 2.6 %; HCT 43.3 % (37.2-46.3); HGB 14.2 d/dL (12.0-15.0); Lymphocytes # (A) 1.06 X 10*3/uL (0.90-5.00); Lymphocytes % (A) 18.3 %; MCH 30.5 pg (27.0-32.0); MCHC 32.8 d/dL (32.0-37.0); MCV 92.9 FL (80.0-97.0); Mean Platelet Volume 12.1 FL (9.5-12.2); Monocytes # (A) 0.45 X 10*3/uL (0.20-1.00); Monocytes % (A) 7.8 %; NRBC Per 100 WBC 0 X 10*3/uL (0.00-0.01); Neutrophils # (A) 4.08 X 10*3/uL (1.80-7.70); Neutrophils % (A) 70.2 %; Platelet Count 242 X 10*3/uL (140-440); RBC 4.66 X 10*6/uL (4.10-5.20); RDW 13.6 % (11.5-14.5)
[2022-08-23 23:19] LABS: Cyclic Citrull Pep IgG Unit <1.5 U/mL (<=3.9); Cyclic Citrullinated Pep IgG Negative
== END | disposition home or self-care (01) ==
LOC: LABWHC1 10:40
PROVIDERS: ATTEND Internal Medicine
DX: M35.00 Sjogren syndrome, unspecified (principal)
CPT/HCPCS: 36415; 80053; 84439; 84443; 84481; 85025; 86038; 86140; 86160; 86162; 86200; 86235; 86431